=== PATIENT | female | born 2000 | race Caucasian/White ===

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

== ENCOUNTER 2021-02-16 19:15 | Emergency (ER) | payer OTHER ==
[2021-02-16 19:24] VITALS: BP 121/75; PULSE 83; TEMP 98.6; BMI 27.4
== END 2021-02-16 20:43 | disposition home or self-care (01) ==
LOC: JERFT 19:15
DX: M79.672 Pain in left foot (principal)
CPT/HCPCS: 73630-TC-LT; 99283-25

== ENCOUNTER 2022-12-25 00:50 | Emergency (ER) | payer OTHER ==
[2022-12-25 01:04] VITALS: BMI 31.4
[2022-12-25] MEDS ORDERED: SODIUM CHLORIDE 1,000 ML IV STA (01:54)
[2022-12-25 02:39] LABS: HEMATOCRIT 32.3 % (32.4-45.2); HEMOGLOBIN 11.4 GM/dL (10.7-15.3); MCH 30.7 pg (25.7-33.7); MCHC 35.3 g/dl (32.0-36.0); MEAN CELL VOLUME 87.1 fl (80-96); MEAN PLT VOLUME 7.7 fl (7.5-11.1); PLATELET COUNT 223 10^3/uL (134-434); RBC 3.71 M/mm3 (3.60-5.2); RDW 12.8 % (11.6-15.6); WHITE BLOOD COUNT 11.2 K/mm3 (4.0-10.0)
[2022-12-25 02:39] LABS: PH,URINE 5.5 (5.0-8.0); URINE APPEARANCE CLEAR; URINE BILIRUBIN NEGATIVE (NEGATIVE); URINE COLOR YELLOW; URINE GLUCOSE (UA) TRACE (NEGATIVE); URINE KETONE NEGATIVE (NEGATIVE); URINE LEUK ESTERASE NEGATIVE (NEGATIVE); URINE NITRITE NEGATIVE (NEGATIVE); URINE PROTEIN NEGATIVE (NEGATIVE); URINE UROBILINOGEN 0.2 mg/dL (0.2-1.0)
[2022-12-25 03:04] LABS: CALCIUM 8.8 mg/dL (8.5-10.1); CHLORIDE 107 mmol/L (98-107); SODIUM 139 mmol/L (136-145)
[2022-12-25 03:05] LABS: ALBUMIN 2.7 g/dl (3.4-5.0); ANION GAP 6 MMOL/L (8-16); BLOOD UREA NITROGEN 7.4 mg/dL (7-18); CO2 26 mmol/L (21-32); GLUCOSE,RANDOM 108 mg/dL (74-106)
[2022-12-25 03:08] LABS: CREATININE 0.4 mg/dL (0.55-1.3); SGOT/AST 19 U/L (15-37); SGPT/ALT 26 U/L (13-61)
[2022-12-25 03:10] LABS: BILIRUBIN,TOTAL < 0.1 mg/dL (0.2-1); TOT PROT 6.2 g/dl (6.4-8.2)
[2022-12-25 03:11] LABS: ALK PHOS 92 U/L (45-117)
[2022-12-25 04:44] VITALS: BP 118/64; PULSE 107; RESP 20; TEMP 98.4
== END 2022-12-25 05:50 | disposition home or self-care (01) ==
LOC: JER 00:50
DX: O26.893 Other specified pregnancy related conditions, third trimester (principal); R42 Dizziness and giddiness; Z3A.27 27 weeks gestation of pregnancy
CPT/HCPCS: 36415; 80053; 81003; 85027; 87086; 99283-25

== ENCOUNTER 2023-03-25 12:30 | Inpatient (IN) | payer OTHER ==
[2023-03-25 14:15] VITALS: BMI 38.0
[2023-03-25] MEDS ORDERED: DINOPROSTONE 10 MG VAGINAL SUPPOSITORY VG STA (14:52)
[2023-03-25 15:29] LABS: BASO % 0.2 % (0-2.0); EOS % 1.7 % (0-4.5); HEMATOCRIT 39.4 % (32.4-45.2); HEMOGLOBIN 13.4 GM/dL (10.7-15.3); LYMPH % 22.6 % (8-40); MCH 29.2 pg (25.7-33.7); MCHC 34.1 g/dl (32.0-36.0); MEAN CELL VOLUME 85.6 fl (80-96); MONO % 7.4 % (3.8-10.2); NEUT % 68.1 % (42.8-82.8); PLATELET COUNT 262 10^3/uL (134-434); RDW 13.2 % (11.6-15.6); WHITE BLOOD COUNT 7.4 K/mm3 (4.0-10.0)
[2023-03-25 15:36] LABS: INR 0.96 (0.83-1.09); PROTHROMBIN TIME (PATIENT) 11.1 SEC (9.7-13.0)
[2023-03-25 15:39] LABS: ACTIVATED PTT 28.5 SECONDS (25.2-36.5)
[2023-03-25 16:09] LABS: POTASSIUM 4.7 mmol/L (3.5-5.1)
[2023-03-25 16:11] LABS: ALBUMIN 2.7 g/dl (3.4-5.0); BLOOD UREA NITROGEN 12.5 mg/dL (7-18); CALCIUM 9.6 mg/dL (8.5-10.1)
[2023-03-25 16:14] LABS: CREATININE 0.5 mg/dL (0.55-1.3)
[2023-03-25 16:16] LABS: BILIRUBIN,TOTAL 0.2 mg/dL (0.2-1); TOT PROT 6.2 g/dl (6.4-8.2)
[2023-03-25 16:16] LABS: EPI CELLS 20 /uL (0-25.1); HYALINE CASTS 2 /uL (0-3.1); URINE APPEARANCE CLEAR; URINE BACTERIA 2899 /uL (0-1359); URINE BILIRUBIN NEGATIVE (NEGATIVE); URINE COLOR YELLOW; URINE GLUCOSE (UA) NEGATIVE (NEGATIVE); URINE KETONE NEGATIVE (NEGATIVE); URINE LEUK ESTERASE TRACE (NEGATIVE); URINE NITRITE NEGATIVE (NEGATIVE); URINE PROTEIN TRACE (NEGATIVE); URINE RBC 9 /uL (0-23.9); URINE UROBILINOGEN 0.2 mg/dL (0.2-1.0); URINE WBC 157 /uL (0-25.8)
[2023-03-25] MEDS: ELECTROLYTE-148 SOLN 1,000 ML IV SCH (18:25)
[2023-03-26] MEDS ORDERED: PROMETHAZINE HCL 25 MG/1 ML VIAL IVPB ONE (03:25)
[2023-03-26] MEDS ORDERED: BUTORPHANOL TARTRATE 1 MG/ML VIAL IVPB ONE (03:25)
[2023-03-26] MEDS ORDERED: ELECTROLYTE-148 SOLN 500 ML IV SCH (03:25)
[2023-03-26] MEDS: ELECTROLYTE-148 SOLN 1,000 ML IV SCH ×4 (03:30→17:07)
[2023-03-26] MEDS ORDERED: BUTORPHANOL TARTRATE 1 MG/ML VIAL ONE (03:34)
[2023-03-26] MEDS ORDERED: PROMETHAZINE HCL 25 MG/1 ML VIAL ONE (03:34)
[2023-03-26] MEDS ORDERED: AMPICILLIN - 2 GM in SODIUM CHLORIDE 100 ML IVPB STA (05:00)
[2023-03-26] MEDS ORDERED: AMPICILLIN SODIUM 2 GM VIAL ONE (05:14)
[2023-03-26] MEDS ORDERED: FENTANYL/BUPIVACAINE/NS/PF - PCEA - 50 ML DISP.SYRIN EP ONE (07:41)
[2023-03-26] MEDS ORDERED: LIDO 2%/EPI 1:200000 PRESRVFRE (20 ML SDVIAL) ONE ×2 (07:45→13:04)
[2023-03-26] MEDS ORDERED: BUPIVACAINE HCL/PF 0.25% (2.5MG/ML) 10 ML VIAL ONE ×2 (07:45→13:04)
[2023-03-26] MEDS ORDERED: FENTANYL CITRATE/PF 50 MCG/ML VIAL ONE (08:09)
[2023-03-26] MEDS ORDERED: NIFEdipine 10 MG CAPSULE (FP) PO ONE (09:00)
[2023-03-26] MEDS ORDERED: OXYTOCIN 30 UNITS in 0.9% NS 30 UNIT/500 ML INFUS.BAG IVPB SCH (09:00)
[2023-03-26] MEDS ORDERED: AMPICILLIN SODIUM 1 GM VIAL ONE (09:36)
[2023-03-26] MEDS ORDERED: SODIUM CHLORIDE 100 ML IVPB ONE (09:38)
[2023-03-26] MEDS: AMPICILLIN - 1 GM in SODIUM CHLORIDE 100 ML IVPB SCH ×2 (09:40→12:43)
[2023-03-26 10:03] LABS: POC NITRAZINE POS
[2023-03-26] MEDS ORDERED: NALOXONE HCL 0.4 MG/ML VIAL IVPUSH PRN (12:23)
[2023-03-26] MEDS ORDERED: FENTANYL/BUPIVACAINE/NS/PF - PCEA - 50 ML DISP.SYRIN EP SCH (12:30)
[2023-03-26] MEDS ORDERED: CITRIC ACID/SODIUM CITRATE 30 ML UNIT-DOSE CUP PO ONE (12:35)
[2023-03-26] MEDS ORDERED: ceFAZolin SODIUM 1 GM VIAL ONE (13:15)
[2023-03-26] MEDS ORDERED: SODIUM CHLORIDE 0.9% P/F 10 ML VIAL IJ ONE (13:15)
[2023-03-26] MEDS ORDERED: OXYTOCIN 10 UNITS/ML VIAL ONE ×2 (13:31→13:57)
[2023-03-26] MEDS ORDERED: morphine SULFATE/PF 1 MG/2 ML (2cc Syringe - QUVA) ONE (13:33)
[2023-03-26] MEDS ORDERED: morphine SULFATE/PF 1 MG/2 ML (2cc Syringe - QUVA) EP ONE (13:46)
[2023-03-26] MEDS ORDERED: ONDANSETRON 4 MG/2 ML VIAL IVPUSH PRN (13:48)
[2023-03-26] MEDS ORDERED: METOPROLOL TARTRATE 5 MG/5 ML VIAL ONE (14:03)
[2023-03-26] MEDS ORDERED: hydrALAZINE HCL 20 MG/ML VIAL ONE (14:10)
[2023-03-26] MEDS: OXYTOCIN 20 UNITS in 0.9% NS 20 UNIT/1,000 ML INFUS.BAG IV SCH ×2 (14:10→20:19)
[2023-03-26] MEDS ORDERED: METHYLERGONOVINE MALEATE 0.2 MG/1 ML AMP IM PRN (14:34)
[2023-03-26] MEDS ORDERED: SIMETHICONE 80 MG TAB.CHEW (FP) PO PRN (14:34)
[2023-03-26] MEDS ORDERED: MEPERIDINE HCL 25 MG/ML VIAL IVPUSH ONE (14:45)
[2023-03-26 14:53] LABS: CORD BASE EXCESS -5.7 mmol/L (0-2); CORD HCO3 21.3 mmHg (20-29); CORD PCO2 46.8 mmHg (30-78); CORD pH 7.276 (7.14-7.44)
[2023-03-26 14:56] LABS: CORD HCO3 20.7 mmHg (20-29); CORD pH 7.354 (7.14-7.44)
[2023-03-26] MEDS: FENTANYL/BUPIVACAINE/NS/PF - PCEA - 50 ML DISP.SYRIN EP SCH (16:21)
[2023-03-26] MEDS: FERROUS SO4 325 MG TABLET (FP) PO SCH (17:06)
[2023-03-26] MEDS: NIFEdipine E.R. 30 MG TABLET PO SCH (22:07)
[2023-03-26 22:46] LABS: BASO % 0.4 % (0-2.0); EOS % 0.2 % (0-4.5); HEMATOCRIT 38.5 % (32.4-45.2); LYMPH % 13.7 % (8-40); MCH 28.6 pg (25.7-33.7); MCHC 33.7 g/dl (32.0-36.0); MEAN PLT VOLUME 7.7 fl (7.5-11.1); MONO % 7.4 % (3.8-10.2); NEUT % 78.3 % (42.8-82.8); PLATELET COUNT 241 10^3/uL (134-434); RBC 4.53 M/mm3 (3.60-5.2); RDW 13.4 % (11.6-15.6); WHITE BLOOD COUNT 12.7 K/mm3 (4.0-10.0)
[2023-03-26 23:10] LABS: POTASSIUM 3.6 mmol/L (3.5-5.1)
[2023-03-26 23:12] LABS: ALBUMIN 2.2 g/dl (3.4-5.0); BLOOD UREA NITROGEN 8.8 mg/dL (7-18); CALCIUM 8.5 mg/dL (8.5-10.1)
[2023-03-26 23:15] LABS: CREATININE 0.6 mg/dL (0.55-1.3)
[2023-03-26 23:17] LABS: BILIRUBIN,TOTAL 0.5 mg/dL (0.2-1); TOT PROT 5.2 g/dl (6.4-8.2)
[2023-03-27] MEDS ORDERED: MAGNESIUM 4GM/H20 - 4 GM/100 ML IVPB IVPB ONE ×2 (00:08)
[2023-03-27] MEDS ORDERED: MAGNESIUM SULFATE 20GM/500ML - 20 GM/500 ML INFUS.BAG ONE ×3 (00:41→20:38)
[2023-03-27] MEDS: MAGNESIUM SULFATE 20GM/500ML - 20 GM/500 ML INFUS.BAG IVPB SCH ×3 (00:45→20:40)
[2023-03-27] MEDS ORDERED: oxyCODONE HCL 5 MG TABLET PO PRN ×2 (02:34)
[2023-03-27] MEDS ORDERED: ACETAMINOPHEN 325 MG TABLET (FP) ONE ×2 (06:13→14:33)
[2023-03-27] MEDS: ACETAMINOPHEN 325 MG TABLET (FP) PO PRN ×2 (06:15→14:35)
[2023-03-27] MEDS ORDERED: OXYTOCIN 20 UNITS in 0.9% NS 20 UNIT/1,000 ML INFUS.BAG IV ONE (08:03)
[2023-03-27] MEDS: OXYTOCIN 20 UNITS in 0.9% NS 20 UNIT/1,000 ML INFUS.BAG IV SCH ×2 (08:05→16:00)
[2023-03-27] MEDS: FERROUS SO4 325 MG TABLET (FP) PO SCH ×2 (09:30→17:19)
[2023-03-27] MEDS ORDERED: FERROUS SO4 325 MG TABLET (FP) ONE ×2 (09:42→17:13)
[2023-03-27] MEDS ORDERED: PRENATAL VITAMINS W/ FOLIC ACID TABLET (FP) PO ONE (09:43)
[2023-03-27] MEDS ORDERED: NIFEdipine E.R. 30 MG TABLET PO ONE (09:44)
[2023-03-27] MEDS ORDERED: SODIUM CHLORIDE 1,000 ML IV ONE (10:00)
[2023-03-27] MEDS: ENOXAPARIN NA (PORCINE) 40 MG/0.4 ML DISP.SYRIN SQ SCH (10:20)
[2023-03-27] MEDS: NIFEdipine E.R. 30 MG TABLET PO SCH (10:25)
[2023-03-27] MEDS: PRENATAL VITAMINS W/ FOLIC ACID TABLET (FP) PO SCH (10:25)
[2023-03-27 11:34] LABS: BASO % 0.2 % (0-2.0); EOS % 0.2 % (0-4.5); EOS % 0.3 % (0-4.5); HEMATOCRIT 38.6 % (32.4-45.2); HEMATOCRIT 39.6 % (32.4-45.2); HEMOGLOBIN 12.8 GM/dL (10.7-15.3); LYMPH % 11.7 % (8-40); LYMPH % 11.8 % (8-40); MCH 28.6 pg (25.7-33.7); MCH 28.8 pg (25.7-33.7); MCHC 32.7 g/dl (32.0-36.0); MCHC 33.1 g/dl (32.0-36.0); MEAN CELL VOLUME 86.9 fl (80-96); MEAN CELL VOLUME 87.3 fl (80-96); MEAN PLT VOLUME 7.8 fl (7.5-11.1); MEAN PLT VOLUME 7.9 fl (7.5-11.1); MONO % 6.5 % (3.8-10.2); MONO % 6.7 % (3.8-10.2); NEUT % 81.4 % (42.8-82.8); PLATELET COUNT 248 10^3/uL (134-434); PLATELET COUNT 249 10^3/uL (134-434); RBC 4.45 M/mm3 (3.60-5.2); RBC 4.54 M/mm3 (3.60-5.2); RDW 13.6 % (11.6-15.6); WHITE BLOOD COUNT 14.6 K/mm3 (4.0-10.0); WHITE BLOOD COUNT 14.9 K/mm3 (4.0-10.0)
[2023-03-27 11:35] LABS: RETICULOCYTES 3.8 % (0.5-1.5)
[2023-03-27 12:08] LABS: CHLORIDE 106 mmol/L (98-107); POTASSIUM 3.9 mmol/L (3.5-5.1); SODIUM 136 mmol/L (136-145)
[2023-03-27 12:09] LABS: GAMMA GLUTAMYL TRANSPEPTIDASE 8 U/L (5-85)
[2023-03-27 12:11] LABS: ALBUMIN 2.3 g/dl (3.4-5.0); ANION GAP 8 MMOL/L (8-16); BLOOD UREA NITROGEN 6.2 mg/dL (7-18); CALCIUM 8.4 mg/dL (8.5-10.1); CO2 22 mmol/L (21-32); GLUCOSE,RANDOM 76 mg/dL (74-106)
[2023-03-27 12:13] LABS: SGOT/AST 24 U/L (15-37); SGPT/ALT 12 U/L (13-61); SGPT/ALT 14 U/L (13-61); URIC ACID 6.5 mg/dL (2.6-7.2)
[2023-03-27 12:15] LABS: BILIRUBIN,TOTAL 0.4 mg/dL (0.2-1); CREATININE 0.5 mg/dL (0.55-1.3); TOT PROT 5.3 g/dl (6.4-8.2)
[2023-03-27 12:17] LABS: ALK PHOS 188 U/L (45-117)
[2023-03-27] MEDS: FENTANYL/BUPIVACAINE/NS/PF - PCEA - 50 ML DISP.SYRIN EP SCH (13:22)
[2023-03-27] MEDS ORDERED: BISACODYL 10 MG SUPP.RECT RC PRN (14:34)
[2023-03-27 16:16] LABS: MAGNESIUM 5.3 mg/dL (1.8-2.4)
[2023-03-27] MEDS ORDERED: IBUPROFEN 600 MG TABLET (FP) PO ONE (20:30)
[2023-03-27] MEDS: IBUPROFEN 600 MG TABLET (FP) PO PRN (20:32)
[2023-03-27 21:03] LABS: MAGNESIUM 5.7 mg/dL (1.8-2.4)
[2023-03-28] MEDS: MAGNESIUM SULFATE 20GM/500ML - 20 GM/500 ML INFUS.BAG IVPB SCH (00:16)
[2023-03-28 00:48] LABS: MAGNESIUM 5.8 mg/dL (1.8-2.4)
[2023-03-28] MEDS: FERROUS SO4 325 MG TABLET (FP) PO SCH ×2 (08:47→17:47)
[2023-03-28] MEDS: PRENATAL VITAMINS W/ FOLIC ACID TABLET (FP) PO SCH (10:53)
[2023-03-28] MEDS: IBUPROFEN 600 MG TABLET (FP) PO PRN (10:53)
[2023-03-28] MEDS: ENOXAPARIN NA (PORCINE) 40 MG/0.4 ML DISP.SYRIN SQ SCH (10:54)
[2023-03-28] MEDS: NIFEdipine E.R. 30 MG TABLET PO SCH (10:55)
[2023-03-29] MEDS: IBUPROFEN 600 MG TABLET (FP) PO PRN ×2 (01:31→20:40)
[2023-03-29 08:01] LABS: BASO % 0.6 % (0-2.0); EOS % 1.4 % (0-4.5); HEMATOCRIT 32.3 % (32.4-45.2); HEMOGLOBIN 10.8 GM/dL (10.7-15.3); LYMPH % 23.1 % (8-40); MCH 29.2 pg (25.7-33.7); MCHC 33.4 g/dl (32.0-36.0); MEAN CELL VOLUME 87.6 fl (80-96); MONO % 6.8 % (3.8-10.2); NEUT % 68.1 % (42.8-82.8); PLATELET COUNT 286 10^3/uL (134-434); RBC 3.69 M/mm3 (3.60-5.2); RDW 13.3 % (11.6-15.6); WHITE BLOOD COUNT 10.6 K/mm3 (4.0-10.0)
[2023-03-29] MEDS: FERROUS SO4 325 MG TABLET (FP) PO SCH ×2 (10:45→17:58)
[2023-03-29] MEDS: NIFEdipine E.R. 30 MG TABLET PO SCH (10:46)
[2023-03-29] MEDS: ENOXAPARIN NA (PORCINE) 40 MG/0.4 ML DISP.SYRIN SQ SCH (10:46)
[2023-03-29] MEDS: PRENATAL VITAMINS W/ FOLIC ACID TABLET (FP) PO SCH (10:46)
[2023-03-29 19:22] VITALS: RESP 17
[2023-03-30] MEDS: IBUPROFEN 600 MG TABLET (FP) PO PRN (06:00)
[2023-03-30] MEDS: FERROUS SO4 325 MG TABLET (FP) PO SCH (08:25)
[2023-03-30] MEDS: PRENATAL VITAMINS W/ FOLIC ACID TABLET (FP) PO SCH (10:08)
[2023-03-30] MEDS: NIFEdipine E.R. 30 MG TABLET PO SCH (10:08)
[2023-03-30] MEDS: ENOXAPARIN NA (PORCINE) 40 MG/0.4 ML DISP.SYRIN SQ SCH (10:09)
[2023-03-30 11:13] VITALS: BP 135/93; PULSE 96; TEMP 98.2
== END 2023-03-30 12:20 | disposition home or self-care (01) | DRG 540 ==
LOC: JDEL 12:30 → JLDR 12:45 → J3W 03-26 16:16 → JLDR 03-26 23:51 → J3W 03-28 01:35
PROVIDERS: ADMIT Student in an Organized Health Care Education/Training Program; ATTEND Obstetrics & Gynecology
PROC: 10D00Z1 Extraction of Products of Conception, Low, Open Approach (ICD-10-PCS; principal; 2023-03-26)
DX: O48.0 Post-term pregnancy (principal); O41.03X0 Oligohydramnios, third trimester, not applicable or unspecified; O62.0 Primary inadequate contractions; O99.214 Obesity complicating childbirth; E66.9 Obesity, unspecified; Z3A.40 40 weeks gestation of pregnancy; Z37.0 Single live birth; O99.824 Streptococcus B carrier state complicating childbirth; O36.63X0 Maternal care for excessive fetal growth, third trimester, not applicable or unspecified; O14.04 Mild to moderate pre-eclampsia, complicating childbirth; O24.429 Gestational diabetes mellitus in childbirth, unspecified control; O75.89 Other specified complications of labor and delivery; R00.0 Tachycardia, unspecified; R06.02 Shortness of breath; J98.59 Other diseases of mediastinum, not elsewhere classified
CPT/HCPCS: 36415; 36600; 71275-TC; 80053; 81003; 82570; 82803; 82977; 83010; 83036; 83735; 83986-QW; 84156; 84450; 84460; 84550; 85025; 85032; 85045; 85610; 85730; 86780; 86850; 86900; 86901; 88307-TC; 93005; 93010; 94010; Q9967